=== PATIENT | female | born 1960 | race Caucasian/White ===

== ENCOUNTER 2024-11-20 14:12 | Outpatient (REF) | payer BC, SELFPAY ==
[2024-11-20 16:10] LABS: Hemoglobin A1C 5.9 % (<5.7)
[2024-11-20 16:43] LABS: ALT 37 U/L (14-59); AST 21 U/L (15-37); Albumin 3.9 g/dL (3.4-5.0); Alkaline Phosphatase 62 U/L (46-116); Anion Gap 6.2 mmol/L (3-11); BUN 20 mg/dL (7-18); Bilirubin, Total 0.4 mg/dL (0.2-1.0); CO2 28.8 mmol/L (21.0-32.0); CREATININE 0.8 mg/dL (0.55-1.02); Calcium 9.1 mg/dL (8.5-10.1); Calculated LDL 167 mg/dL (<100); Chloride 101 mmol/L (98-107); Cholesterol 266 mg/dL (<200); Estimated GFR 82.23 (mL/min/1.73m2); Glucose 102 mg/dL (74-106); HDL Cholesterol 52 mg/dL (>or=50); Potassium 4.4 mmol/L (3.5-5.1); Sodium 136 mmol/L (136-145); Total Protein 7.1 g/dL (6.4-8.2); Triglyceride 238 mg/dL (<150); Vitamin D 25 Total 44 ng/mL (30-100)
[2024-11-21 09:40] LABS: HIV-1/2 Ag & Ab Screen Negative (Negative)
[2024-11-21 09:45] LABS: Hepatitis C Ab w Rflx HCV PCR Negative (Negative)
== END 2024-11-20 14:13 | disposition home or self-care (01) ==
LOC: NCHCN 14:12
PROVIDERS: Visit Provider Nurse Practitioner Family
DX: F32.A Depression, unspecified (principal); I10 Essential (primary) hypertension; Z00.00 Encounter for general adult medical examination without abnormal findings
CPT/HCPCS: 80053; 80061; 82306; 86803; 87389; 83036